=== PATIENT | female | born 1980 | race Caucasian/White ===

== ENCOUNTER 2017-07-02 10:38 | Emergency (ER) | payer SELFPAY ==
[~2017-07-02] VITALS: Ht 170.2 cm; Wt 51.7 kg
[2017-07-02 11:11] VITALS: BP 108/54
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
[2017-07-02] MEDS ORDERED: ACETAMINOPHEN 325 MG TABLET. PO ONE (12:00)
== END 2017-07-02 11:37 | disposition home or self-care (01) ==
LOC: ER 10:38 → EDBD 10:38 → ER 11:37
DX: M54.6 Pain in thoracic spine (principal); F12.10 Cannabis abuse, uncomplicated; Z90.710 Acquired absence of both cervix and uterus; Z90.49 Acquired absence of other specified parts of digestive tract; Z88.1 Allergy status to other antibiotic agents; Y08.89XA Assault by other specified means, initial encounter; Y93.89 Activity, other specified; Y92.89 Other specified places as the place of occurrence of the external cause; Y99.8 Other external cause status
CPT/HCPCS: 99283